=== PATIENT | female | born 1985 | race Two or more races ===

== ENCOUNTER 2020-01-03 10:15 | Inpatient (IN) | payer OTHER ==
[~2020-01-03] VITALS: Ht 162.6 cm; Wt 65.8 kg
== END 2020-01-26 17:21 | disposition home or self-care (01) | DRG 807 ==
LOC: SURG-SUITE 01-24 23:56 → LDR 01-24 23:56 → SURG-SUITE 01-25 04:42 → OB/GYN 01-26 10:15 → SURG-SUITE 01-26 17:21
PROVIDERS: ADMIT Obstetrics & Gynecology
PROC: 10E0XZZ Delivery of Products of Conception, External Approach (ICD-10-PCS; principal; 2020-01-25)
PROC: 3E033VJ Introduction of Other Hormone into Peripheral Vein, Percutaneous Approach (ICD-10-PCS; 2020-01-25)
PROC: 4A1HXFZ Monitoring of Products of Conception, Cardiac Rhythm, External Approach (ICD-10-PCS; 2020-01-25)
DX: O69.81X0 Labor and delivery complicated by cord around neck, without compression, not applicable or unspecified (principal); Z37.0 Single live birth; Z3A.39 39 weeks gestation of pregnancy

== ENCOUNTER 2020-01-24 09:47 | Outpatient (CLI) | payer OTHER | END 2020-01-24 13:34 | disposition home or self-care (01) | LOC: NST 09:47 | DX: Z34.83 Encounter for supervision of other normal pregnancy, third trimester (principal) ==

== ENCOUNTER → 2020-04-03 16:37 | Outpatient (CLI) | payer OTHER | END | disposition home or self-care (01) | LOC: LAB 16:37 | PROVIDERS: ATTEND Student in an Organized Health Care Education/Training Program | DX: Z20.828 Contact with and (suspected) exposure to other viral communicable diseases (principal) ==

== ENCOUNTER 2025-04-09 08:49 | Outpatient (CLI) | payer OTHER | END 2025-04-09 09:02 | disposition home or self-care (01) | LOC: MRI 08:49 | PROVIDERS: ATTEND Neuromusculoskeletal Medicine, Sports Medicine | DX: M25.521 Pain in right elbow (principal); M77.11 Lateral epicondylitis, right elbow | CPT/HCPCS: 73221 ==